=== PATIENT | male | born 1955 | race Caucasian/White ===

== ENCOUNTER 2018-09-29 20:23 | Emergency (ER) | payer MEDICAID ==
--- NOTE | 2018-09-29 20:43 | EDPHY ---
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 On EMS arrival they found intoxicated with facial abrasions. The patient has no complaints. His pre- hospital glucose is 121. He admits to drinking "2 gallons of beer." REVIEW OF SYSTEMS: Eye: no change in vision or double vision ENT: no sore throat Cardiac: no chest pain or syncope Pulmonary: no cough or SOB Abdomen: no vomiting, diarrhea, abdominal pain Musculoskeletal: no back pain or neck pain Skin: Facial abrasion Neuro: no headache, no weakness or numbness in extremities Constitutional: no fever : no urinary symptoms A comprehensive 10 point review of systems is otherwise negative aside from elements mentioned in the history of present illness. PAST MEDICAL HISTORY: Alcoholism Social history: Recent alcohol , says he drinks beer General Appearance: Alert and conversant, cooperative. Eyes: No scleral icterus. Pupils equal reactive extraocular motion intact. ENT, Mouth: Normal mucous membranes. No hemotympanum. No bruising around the eyes or behind the ears. Respiratory: Normal respiratory effort, breath sounds equal, lungs are clear to auscultation. Cardiovascular: Regular rate and rhythm. Gastrointestinal: Abdomen is soft and non tender. Neurological: Alert, face symmetric, normal motor and sensory in extremities. Slurred speech. Swearing at me. Skin: 2 forehead abrasions and 1 on the bridge of his nose. Musculoskeletal: No midline spinal or extremity tenderness. Psychiatric: Not agitated. Emergency Department course/MDM: Patient presents with alcohol intoxication and 2 forehead abrasions. He does not appear to have sustained any spinal or internal injuries or fractures. Plan for serial examinations. Differential diagnosis considered for head injury including but not limited to concussion, skull fracture, intraparenchymal contusion, subarachnoid, subdural and epidural hematoma. 2220: Signed out to Michael with plan for serial exams. (Kvng Tabares) Constitutional: Initial Vital Signs Temperature (C) 36.7 C 09/29/18 20:28 Heart Rate 69 09/29/18 20:28 Respiratory Rate 18 09/29/18 20:28 Blood Pressure 125/81 H 09/29/18 20:28 O2 Sat (%) 94 09/29/18 20:28 O2 Delivery Mode Room Air Allergies/Adverse Reactions: No Known Allergies Allergy (Verified 09/29/18 20:31) Home Medications: Medication Instructions Recorded No Medications [No Meds] 05/08/13 Medical Decision Making Other Provider: [address] Tabares pending sober re-evaluation. 2357 patient is awake alert. He is ambulating unassisted in the emergency department. He states that he recalls falling after drinking. He did not have a loss of consciousness. On re-evaluation he has abrasions to his right forehead in his nose. No bony tenderness or deformity. No lacerations. No hematoma. Pupils equal round reactive light accommodation. Patient ambulated unassisted to the bathroom. Neck is nontender, full range of motion without pain. Patient is medically cleared for the arc. (Gilmer Rodriguez) Departure - Departure Disposition: Home, Routine, Self-Care Clinical Impression: Facial abrasion Qualifiers: Encounter type: initial encounter Qualified Code(s): S00.81XA - Abrasion of other part of head, initial encounter Alcoholic intoxication Qualifiers: Complication of substance-induced condition: uncomplicated Qualified Code(s): F10.920 - Alcohol use, unspecified with intoxication, uncomplicated Condition: Good Instructions: Head Injury (ED), Alcohol Intoxication (ED), Abrasion (ED) Referrals: Meghna See PA [Primary Care Provider] - As per Instructions
[2018-09-30] MEDS ORDERED: CHLORDIAZEPOXIDE 25MG PREPK#6 BTL TAKEHOME ONE (00:02)
[2018-09-30 00:44] VITALS: BP 106/76
== END 2018-09-30 00:43 | disposition home or self-care (01) ==
LOC: EDUNIT#
DX: S00.81XA Abrasion of other part of head, initial encounter (principal); F10.920 Alcohol use, unspecified with intoxication, uncomplicated

== ENCOUNTER 2018-11-12 13:28 | Emergency (ER) | payer MEDICAID | END 2018-11-12 14:09 | disposition home or self-care (01) ==